=== PATIENT | female | born 1960 ===

== ENCOUNTER 2018-10-15 06:17 | Day surgery (SDC) | payer MEDICAID ==
[2018-10-15 06:42] VITALS: O2SAT 100
[2018-10-15] MEDS ORDERED: Propofol 10 mg/ml Inj (20 ML) ONE ×2 (07:52→08:27)
[2018-10-15] MEDS ORDERED: Lidocaine Hydrochloride 5 ML INJ ONE (07:52)
[2018-10-15 09:00] VITALS: TEMP 97.4
[2018-10-15 09:11] VITALS: BP 121/60; PULSE 50; RESP 16
== END 2018-10-15 10:00 | disposition home or self-care (01) ==
LOC: C.ENDO 06:17
PROVIDERS: ATTEND Internal Medicine Gastroenterology
DX: Z12.11 Encounter for screening for malignant neoplasm of colon (principal); K21.9 Gastro-esophageal reflux disease without esophagitis; D12.4 Benign neoplasm of descending colon; K29.50 Unspecified chronic gastritis without bleeding; K31.7 Polyp of stomach and duodenum; K21.0 Gastro-esophageal reflux disease with esophagitis; K64.1 Second degree hemorrhoids; M06.9 Rheumatoid arthritis, unspecified
CPT/HCPCS: 43239; 43251; 45380; 45385; 88305; 88312; 88313; 88342; J2704; J7040

== ENCOUNTER 2018-12-24 09:31 | Outpatient (CLI) | payer MEDICAID | END 2018-12-24 09:32 | disposition home or self-care (01) | LOC: C.MAMMO 09:31 | DX: Z12.31 Encounter for screening mammogram for malignant neoplasm of breast (principal); Z80.3 Family history of malignant neoplasm of breast ==